=== PATIENT | female | born 2000 | race Caucasian/White ===

== ENCOUNTER 2018-07-11 08:50 | Inpatient (IN) | payer OTHER ==
[2018-07-11] MEDS ORDERED: METHYLERGONOVINE 0.2 MG INJ IM ×2 (09:30→21:00)
[2018-07-11] MEDS ORDERED: CARBOPROST 250 MCG INJ IM ×2 (09:30→21:00)
[2018-07-11] MEDS ORDERED: BUTORPHANOL 2 MG INJ IV ×2 (09:30)
[2018-07-11] MEDS ORDERED: MISOPROSTOL 200 MCG TAB PR ×2 (09:30→21:00)
[2018-07-11] MEDS ORDERED: OXYTOCIN 30 UNITS/LR 500 ML IV ×4 (09:30→21:00)
[2018-07-11] MEDS ORDERED: LIDOCAINE 1% (MPF) 30 ML INJ INJ (09:30)
[2018-07-11] MEDS: LACTATED RINGER'S 1,000 ML IV ×3 (09:37→16:09)
[2018-07-11] MEDS ORDERED: IBUPROFEN 600 MG TAB PO (10:00)
[2018-07-11 10:02] LABS: ADD MAN DIFF? NO
[2018-07-11 10:10] LABS: BASOPHILS % 0.4 % (0.0-2.0); EOSINOPHILS # 0.3 10^3/ul (0.0-0.5); EOSINOPHILS % 2.5 % (0.0-7.0); HEMATOCRIT 36.3 % (37.0-47.0); HEMOGLOBIN 12.5 g/dl (12.0-16.0); LYMPHOCYTES % 18.4 % (18.0-55.0); MEAN CORPUSCULAR HEMOGLOBIN 30.9 pg (29.0-33.0); MEAN CORPUSCULAR HGB CONC 34.4 g/dl (32.0-37.0); MEAN CORPUSCULAR VOLUME 89.6 fl (72.0-104.0); MONOCYTE # 0.6 10^3/ul (0.3-0.9); MONOCYTES % 5.8 % (0.0-13.0); NEUTROPHIL # 7.9 10^3/ul (1.6-7.5); NEUTROPHILS % 72.6 % (30.0-74.0); PLATELET COUNT 232 10^3/UL (140-415); RED BLOOD COUNT 4.05 10^6/ul (4.20-5.40); RED CELL DISTRIBUTION WIDTH 12.1 % (11.5-14.5)
[2018-07-11 10:10] LABS: WHITE BLOOD COUNT 10.8 10^3/ul (4.8-10.8)
[2018-07-11] MEDS: OXYTOCIN 30 UNITS/LR 500 ML IV ×2 (10:16→18:51)
[2018-07-11 10:30] LABS: INR 0.89; PROTIME 12.2 Sec (11.9-14.9)
[2018-07-11 10:31] LABS: PARTIAL THROMBOPLASTIN TIME 27.4 Sec (23.0-35.0)
[2018-07-11 12:01] LABS: HEPATITIS B SURFACE ANTIGEN NEGATIVE (NEGATIVE)
[2018-07-11] MEDS ORDERED: ONDANSETRON 4 MG INJ IV ×2 (14:30→21:00)
[2018-07-11] MEDS ORDERED: DIPHENHYDRAMINE 50 MG INJ IV ×2 (14:30→21:00)
[2018-07-11] MEDS ORDERED: KETOROLAC 30 MG INJ IV (14:30)
[2018-07-11] MEDS ORDERED: FENTAnyl 2MCG/ML-ROPIV 0.2% 100 ML BAG EPI (14:30)
[2018-07-11] MEDS ORDERED: NALOXONE (0.4 MG/ML) INJ IV (14:30)
[2018-07-11] MEDS ORDERED: HYDROmorphONE 0.5 MG/0.5 ML SYG IV ×2 (14:30)
[2018-07-11] MEDS ORDERED: MAGNESIUM HYDROXIDE 30ML CUP PO (19:30)
[2018-07-11 19:32] LABS: RAPID PLASMA REAGIN NONREACTIVE (NR)
[2018-07-11] MEDS: DEXTROSE 5%-LR 1,000 ML IV (20:35)
[2018-07-11] MEDS ORDERED: ACETAMINOPHEN 325 MG TAB PO (21:00)
[2018-07-11] MEDS ORDERED: DIBUCAINE 1% 30 GM OINT TOP (21:00)
[2018-07-11] MEDS ORDERED: OXYCODONE/ASPIRIN (4.88/325) TAB PO (21:00)
[2018-07-11] MEDS ORDERED: ZOLPIDEM 5 MG TAB PO (21:00)
[2018-07-11] MEDS: LACTATED RINGER'S 1,000 ML IV* (23:03)
[2018-07-11] MEDS: WITCH HAZEL/GLYCERIN PAD PR (23:03)
[2018-07-11] MEDS: LANOLIN HPA 1 PKT TOP (23:04)
[2018-07-11] MEDS: BENZOCAINE 20% 56 ML SPRAY TOP (23:04)
[2018-07-11] MEDS: IBUPROFEN 600 MG TAB PO (23:34)
[2018-07-12] MEDS: DEXTROSE 5%-LR 1,000 ML IV ×3 (04:35→20:35)
[2018-07-12] MEDS: LACTATED RINGER'S 1,000 ML IV* ×3 (04:35→20:35)
[2018-07-12] MEDS: IBUPROFEN 600 MG TAB PO ×3 (05:41→18:01)
[2018-07-12 08:17] LABS: ADD MAN DIFF? NO
[2018-07-12 08:20] LABS: WHITE BLOOD COUNT 10.8 10^3/ul (4.8-10.8)
[2018-07-12 08:20] LABS: BASOPHILS % 0.2 % (0.0-2.0); EOSINOPHILS # 0.1 10^3/ul (0.0-0.5); EOSINOPHILS % 1.2 % (0.0-7.0); HEMATOCRIT 29.8 % (37.0-47.0); HEMOGLOBIN 10.2 g/dl (12.0-16.0); LYMPHOCYTES # 1.9 10^3/ul (0.8-2.9); LYMPHOCYTES % 17.8 % (18.0-55.0); MEAN CORPUSCULAR HGB CONC 34.2 g/dl (32.0-37.0); MEAN CORPUSCULAR VOLUME 90.6 fl (72.0-104.0); MEAN PLATELET VOLUME 9.7 fl (7.4-10.4); MONOCYTE # 0.8 10^3/ul (0.3-0.9); MONOCYTES % 7.4 % (0.0-13.0); NEUTROPHIL # 7.9 10^3/ul (1.6-7.5); PLATELET COUNT 169 10^3/UL (140-415); RED BLOOD COUNT 3.29 10^6/ul (4.20-5.40)
[2018-07-12] MEDS: SENNA/DOCUSATE NA (8.6MG/50MG) TAB PO (21:08)
[2018-07-13] MEDS: IBUPROFEN 600 MG TAB PO ×3 (00:06→11:34)
[2018-07-13] MEDS: DEXTROSE 5%-LR 1,000 ML IV ×2 (04:35→12:35)
[2018-07-13] MEDS: LACTATED RINGER'S 1,000 ML IV* ×2 (04:35→12:35)
[2018-07-13] MEDS: MEASLES,MUMPS,RUBELLA VACCINE INJ SC* (09:38)
[2018-07-13] MEDS: DIPHTH/TET/ACEL PERTUSS (ADULT) 0.5 ML VIAL IM* (11:34)
== END 2018-07-13 15:55 | disposition home or self-care (01) | DRG 807 ==
LOC: OBT 08:50 → L-D 08:50 → OBT 09:26 → L-D 09:25 → PP1 20:22
PROVIDERS: Obstetrics & Gynecology
PROC: 10E0XZZ Delivery of Products of Conception, External Approach (ICD-10-PCS; principal; 2018-07-11)
PROC: 0W8NXZZ Division of Female Perineum, External Approach (ICD-10-PCS; 2018-07-11)
DX: O80 Encounter for full-term uncomplicated delivery (principal); Z37.0 Single live birth; O90.81 Anemia of the puerperium; D64.9 Anemia, unspecified; Z3A.39 39 weeks gestation of pregnancy; Z23 Encounter for immunization
CPT/HCPCS: 62322; 85025; 85610; 85730; 86592; 86850; 86900; 86901; 87340; 90715